=== PATIENT | female | born 1995 | race Caucasian/White ===

== ENCOUNTER 2017-05-22 12:43 | Emergency (ER) | payer OTHER ==
[~2017-05-22] VITALS: Ht 157.5 cm; Wt 53.5 kg
[2017-05-22 13:01] VITALS: BP 105/56
--- NOTE | 2017-05-22 13:01 | NUR ---
PT AMBULATED TO BED 2
--- NOTE | 2017-05-22 13:37 | NUR ---
PT REPORTS BEING AT WORK WITH SUDDEN DIZZINESS AND LOWER BACK PAIN, STATES SHE STARTED HER MENSES YESTERDAY AND C/O CRAMPING AND DIZZINESS MORE THAN USUAL. PT AMB, IN NAD. RESP EVEN AND UNLABORED. REPORTS MILD LOWER ABD PAIN WITH RADIATION TO LOWER BACK. DENIES ANY FEVERS/CHILLS. SKIN W/D/I. FRIEND AT BEDSIDE
[2017-05-22] MEDS ORDERED: NACL 0.9% 500 ML IV SCH (13:43)
[2017-05-22] MEDS ORDERED: ONDANSETRON 4 MG/2 ML VIAL IVP ONE (13:45)
--- NOTE | 2017-05-22 13:49 | NUR ---
PT UP TO BATHROOM TO COLLECT URINE
[2017-05-22 14:11] LABS: BASOPHILS # (AUTO) 0.1 K/uL (0.00-0.22); BASOPHILS % (AUTO) 0.8 % (0.0-2.0); EOSINOPHILS % (AUTO) 0.3 % (0.0-4.0); HEMATOCRIT 30.9 % (36-48); HEMOGLOBIN 9.6 g/dL (12.0-16.0); LYMPHOCYTES # (AUTO) 0.9 K/uL (2.5-16.5); LYMPHOCYTES % (AUTO) 6.2 % (20.5-51.1); MEAN CORPUSCULAR HEMOGLOBIN 20 pg (27-31); MEAN CORPUSCULAR HGB CONC 31 g/dL (33-37); MEAN CORPUSCULAR VOLUME 65 fL (80-94); MONOCYTES # (AUTO) 0.8 K/uL (0.8-1.0); MONOCYTES % (AUTO) 5.9 % (1.7-9.3); NEUTROPHILS % (AUTO) 86.8 % (42.2-75.2); PLATELET COUNT (AUTO) 291 K/uL (140-450); RED BLOOD CELL COUNT(AUTO) 4.72 MIL/uL (4.20-5.40); RED CELL DISTRIBUTION WIDTH 18.5 % (11.6-13.7); WHITE BLOOD COUNT (AUTO) 13.8 K/uL (4.8-10.8)
[2017-05-22 14:21] LABS: PROTHROMBIN TIME 10.7 secs (10.8-13.4)
[2017-05-22 14:23] LABS: ANION GAP 16.1 (8-16); CARBON DIOXIDE 22.5 mmol/L (21-32); CREATININE 0.6 mg/dL (0.6-1.3); POTASSIUM 3.6 mmol/L (3.5-5.1)
[2017-05-22 14:29] LABS: ALBUMIN 4.3 g/dL (3.4-5.0); TOTAL BILIRUBIN 0.5 mg/dL (0.0-1.0)
--- NOTE | 2017-05-22 15:00 | NUR ---
NO ACUTE CHNAGES IN CONDITON, PT WITH EYES CLOSED, IN NAD.
[2017-05-22 15:26] VITALS: BP 99/58
--- NOTE | 2017-05-22 15:26 | NUR ---
Patient discharged with v/s stable. Written and verbal after care instructions given and explained. Patient alert, oriented and verbalized understanding of instructions. Ambulatory with steady gait. All questions addressed prior to discharge. ID band removed. Patient advised to follow up with PMD. Rx of ANTIVERT 25 MG given. Patient educated on indication of medication including possible reaction and side effects. Opportunity to ask questions provided and answered.
== END 2017-05-22 15:26 | disposition home or self-care (01) ==
LOC: MED 12:43
DX: D64.9 Anemia, unspecified (principal); N94.6 Dysmenorrhea, unspecified
CPT/HCPCS: 36415; 80053; 81002; 81025; 82948; 85025; 85610; 85730; 86886; 86900; 86901; 96374; 99284; J2405; J7030

== ENCOUNTER 2017-10-18 14:30 | Emergency (ER) | payer OTHER ==
[~2017-10-18] VITALS: Ht 160 cm; Wt 54.4 kg
[2017-10-18 15:19] VITALS: BP 111/67
--- NOTE | 2017-10-18 17:06 | NUR ---
PT AMBULATED TO BED 3
--- NOTE | 2017-10-18 17:08 | NUR ---
21Y/F BIB FRIEND C/O DYSURIA, URGENCY, AND HEMATURIA X YESTERDAY. DENIES N/V/D; SKIN IS PINK/WARM/DRY; AAOX4 WITH EVEN AND STEADY GAIT; LUNGS CLEAR BL; HR EVEN AND REGULAR; PT DENIES ANY FEVER, CP, SOB, OR COUGH AT THIS TIME; PATIENT STATES PAIN OF 10/10 AT THIS TIME; VSS; PATIENT POSITIONED FOR COMFORT; HOB ELEVATED; BEDRAILS UP X1; BED DOWN. ER MD MADE AWARE OF PT STATUS.
--- NOTE | 2017-10-18 17:16 | NUR ---
Patient being evaluated by physician at bedside.
[2017-10-18] MEDS ORDERED: PHENAZOPYRIDINE 100 MG TAB PO ONE (17:20)
[2017-10-18 18:14] LABS: APPEARANCE,URINE CLEAR (CLEAR); BILIRUBIN,URINE NEGATIVE (NEGATIVE); BLOOD, URINE 3+ (NEGATIVE); COLOR,URINE YELLOW (YELLOW); LEUKOCYTE ESTERASE ,URINE NEGATIVE (NEGATIVE); NITRITE, URINE NEGATIVE (NEGATIVE); UGLUCOSE NEGATIVE (NEGATIVE)
[2017-10-18 18:20] LABS: RBC,URINE 11-20 (MOD) /HPF (0-5); WBC,URINE 0-5 (RARE) /HPF (0-5)
--- NOTE | 2017-10-18 19:15 | NUR ---
Patient discharged with v/s stable. Written and verbal after care instructions given and explained. Patient alert, oriented and verbalized understanding of instructions. Ambulatory with steady gait. All questions addressed prior to discharge. ID band removed. Patient advised to follow up with PMD. Rx of PHENAZOPHYRIDINE AND MACROBID given. Patient educated on indication of medication including possible reaction and side effects. Opportunity to ask questions provided and answered.
[2017-10-18 19:16] VITALS: BP 109/64
== END 2017-10-18 19:15 | disposition home or self-care (01) ==
LOC: MED 14:30
DX: N30.90 Cystitis, unspecified without hematuria (principal)
CPT/HCPCS: 81001; 81025; 87086; 99284

== ENCOUNTER 2019-02-05 21:53 | Emergency (ER) | payer SELFPAY ==
[~2019-02-05] VITALS: Ht 157.5 cm; Wt 50.6 kg
[2019-02-05 22:00] VITALS: BP 115/83
[2019-02-05 22:44] VITALS: BP 115/83
== END 2019-02-05 22:44 | disposition home or self-care (01) ==
LOC: MED 21:53
DX: S30.814A Abrasion of vagina and vulva, initial encounter (principal); X58.XXXA Exposure to other specified factors, initial encounter; Y92.89 Other specified places as the place of occurrence of the external cause; Y93.89 Activity, other specified; Y99.8 Other external cause status
CPT/HCPCS: 81002; 81025; 99282; C1758

== ENCOUNTER 2019-03-29 15:02 | Emergency (ER) | payer SELFPAY ==
[~2019-03-29] VITALS: Ht 160 cm; Wt 48.8 kg
[2019-03-29 15:24] VITALS: BP 141/76
--- NOTE | 2019-03-29 16:43 | NUR ---
Patient ambulated to bed 1. RN evaluating patient at bedside.
--- NOTE | 2019-03-29 16:47 | NUR ---
23/F BIB SELF C/O HACKING COUGH CONGESTION BODYACHES , INTERMITENT FEVER CHILLS 5 DAYS. ANTERIOR CHEST WALL PAIN WITH FORCEFUL COUGHING. HX--ANEMIA, ASTHMA. TEMP AT ER 98.5 ORAL AT THIS TIME. PATIENT STATES PAIN OF 7/10 AT THIS TIME. PATIENT POSITIONED FOR COMFORT; HOB ELEVATED; BEDRAILS UP X1; BED DOWN. ER MD MADE AWARE OF PT STATUS.
[2019-03-29] MEDS: predniSONE 20 MG TAB PO ONE (17:03)
--- NOTE | 2019-03-29 17:04 | NUR ---
X RAY AT BEDSIDE
[2019-03-29] MEDS: ALBUTEROL 0.083% 2.5 MG/3 ML NEBU INH ONE (17:11)
[2019-03-29] MEDS: IPRATROPIUM 0.02% 0.5 MG/2.5 ML NEBU INH ONE (17:12)
--- NOTE | 2019-03-29 17:12 | NUR ---
[facility] GIVEN ORDERED
[2019-03-29 18:57] VITALS: BP 102/54
--- NOTE | 2019-03-29 18:58 | NUR ---
Patient discharged with v/s stable. Written and verbal after care instructions given and explained. Patient alert, oriented and verbalized understanding of instructions. Ambulatory with steady gait. All questions addressed prior to discharge. ID band removed. Patient advised to follow up with PMD. Rx of PREDNISONE AND ALBUTEROL given. Patient educated on indication of medication including possible reaction and side effects. Opportunity to ask questions provided and answered.
== END 2019-03-29 18:58 | disposition home or self-care (01) ==
LOC: MED 15:02
DX: J11.1 Influenza due to unidentified influenza virus with other respiratory manifestations (principal); J45.909 Unspecified asthma, uncomplicated; D64.9 Anemia, unspecified
CPT/HCPCS: 71045; 94640; 99283; J7512; J7613; J7644; Q0092